=== PATIENT | female | born 1965 | race Hispanic/Latino ===

== ENCOUNTER 2017-03-27 14:09 | Emergency (ER) | payer OTHER ==
[~2017-03-27] VITALS: Ht 160 cm; Wt 86.9 kg
[2017-03-27] MEDS ORDERED: NAPROSYN500 MG PO (16:12)
[2017-03-27 16:41] VITALS: BP 124/70
== END 2017-03-27 16:41 | disposition home or self-care (01) ==
LOC: EME 14:09
DX: S63.611A Unspecified sprain of left index finger, initial encounter (principal); W22.09XA Striking against other stationary object, initial encounter; Z87.891 Personal history of nicotine dependence
CPT/HCPCS: 73130; 99281; 99283